=== PATIENT | female | born 1970 | race Caucasian/White ===

== ENCOUNTER 2020-02-24 17:57 | Emergency (ER) | payer BC, SELFPAY ==
--- NOTE | ~2020-02-24 | CT_ITS ---
EXAMINATION: CT abdomen pelvis w con DATE: 02/24/2020 19:19 INDICATION: Diverticulitis. Abdominal pain. TECHNIQUE: Computed tomography (CT) of the abdomen and pelvis was performed without intravenous contr ast. Automated exposure control and iterative reconstruction technique were employed. The dose-length product was 1331.61 mGy-cm. COMPARISON: 04/10/2019 FINDINGS: Lung bases are clear. Heart size is normal. No pericardial or pleural effusion. Focal hepatic steatos is at the ligamentum teres. Tiny density likely representing a gallstone within the decompressed gall bladder. Spleen, pancreas, bilateral adrenal glands and kidneys are normal. Bladder and bilateral adn exa are normal. There is enlargement of the uterine fundus with anterior bowing of the endometrial co mplex suggesting an approximately 5.6 x 4.4 cm uterine fibroid. Multiple sigmoid diverticula with inf lammatory stranding centered at a diverticulum at the mid sigmoid colon consistent with diverticular colitis. No abscess or free intraperitoneal gas or fluid. Small bowel and appendix are normal. No pat hologically enlarged abdominal or pelvic lymphadenopathy. Mild scattered degenerative skeletal change s. 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 A few scattered bone regla nds. IMPRESSION: 1. Radiographically an comminuted sigmoid diverticulitis. 2. Cholelithiasis. 3. Likely fibroid uterus. Consider follow-up pelvic ultrasound for further evaluation. Reviewed, dictated and finalized at location [facility] IMPRESSION: 1. Radiographically an comminuted sigmoid diverticulitis. 2. Cholelithiasis. 3. Likely fibroid uterus. Consider follow-up pelvic ultrasound for further eval uation.
[2020-02-24 17:59] VITALS: BP 144/110; PULSE 99; RESP 18; TEMP 37.2; O2SAT 100
--- NOTE | 2020-02-24 18:21 | ED.ABDPAIN ---
HPI - Abdominal Pain General Chief Complaint: Abdominal Pain Stated Complaint: abd pain/hx diverticulitis Time Seen by Provider: 02/24/20 18:16 Source: patient Mode of arrival: ambulatory Limitations: no limitations History of Present Illness HPI narrative: Patient is a 49-year-old female complaining of left lower quadrant pain, 7 out of 10, sharp, nonradiating started 2 days ago. Patient denies any nausea vomiting diarrhea. Patient denies any fever or chills. Patient denies any urinary symptoms. Related Data Allergies Allergy/AdvReac Type Severity Reaction Status Date / Time sulfamethoxazole Allergy Unknown Unknown Verified 02/24/20 18:29 trimethoprim Allergy Unknown Unknown Verified 02/24/20 18:29 Review of Systems Review of Systems: All systems reviewed & are unremarkable except as noted in HPI and below Constitutional: Constitutional: Denies body ache(s), Denies chills, Denies excessive sweating, Denies fatigue, Denies fever(s), Denies headache(s), Denies lethargy, Denies malaise, Denies weakness and Denies weight loss Eyes: Eyes: Denies blurry vision, Denies change in vision and Denies loss of vision ENT: Denies dizziness, Denies ear discharge, Denies headache(s), Denies lip swelling, Denies epistaxis, Denies nasal congestion, Denies neck pain, Denies throat swelling and Denies tongue swelling Cardiovascular: Cardiovascular: Denies chest pain, Denies chest pain at rest, Denies chest pain with activity, Denies diaphoresis, Denies rapid heart rate, Denies edema, Denies irregular heart rhythm, Denies lightheadedness, Denies palpitations, Denies dyspnea and Denies dyspnea on exertion Respiratory: Respiratory: Denies chest congestion, Denies cough, Denies hemoptysis, Denies dyspnea and Denies dyspnea on exertion Gastrointestinal: Gastrointestinal: Denies melena, Denies hematochezia, Denies diarrhea, Denies nausea, Denies vomiting and Denies hematemesis Musculoskeletal: Musculoskeletal: Denies abnormal gait, Denies deformity, Denies joint swelling, Denies limited range of motion, Denies neck pain and Denies numbness Neurologic: Denies Abnormal speech present, Denies abnormal gait, Denies confusion, Denies dizziness, Denies headache(s), Denies focal weakness, Denies loss of vision, Denies numbness, Denies Other visual disturbances, Denies Sensory deficit (Neuro) and Denies weakness Psychiatric: Psychiatric: Denies confusion, Denies depression, Denies auditory hallucinations, Denies homicidal ideation and Denies suicidal ideation Endocrine: Endocrine: Denies cold intolerance, Denies excessive sweating, Denies fatigue, Denies heat intolerance and Denies palpitations Hematologic/Lymphatic: Hematologic/Lymphatic: Denies easy bleeding and Denies easy bruising Allergic/Immunologic: Allergic/Immunologic: Denies lip swelling, Denies throat swelling and Denies tongue swelling PMFSH Past Medical History Medical History (Updated 02/24/20 @ 21:07 by Yariel Callahan MD) Back pain Bulging disc Diverticulitis Kidney stone Migraines Surgical History Surgical History H/O section Social History Social History (Updated 04/10/19 @ 18:28 by Ivette Tobias) Smoking status: Unknown if ever smoked Gender identity (if verbalized by the patient): Female Exam Const: General: cooperative, healthy appearing, comfortable, no acute distress, well developed, alert and awake; No confusion Orientation/consciousness: oriented to person, oriented to place, oriented to time, patient oriented x3 and No confusion Limitations: no limitations HENMT: Head: normal to inspection, normocephalic and atraumatic Ears: hearing grossly normal bilaterally, TM normal on the right and TM normal on the left General nose exam: Normal external nose present, Normal nares present and No nasal discharge present Face and sinus: normal facial exam Mouth: Yes Normal oral and palatal mucosa present, Yes l
[2020-02-24 18:34] LABS: Basophils Percent Auto 0.3 % (0.2-1.2); Eosinophils Absolute Auto 0.2 K/mm3 (0-0.3); Eosinophils Percent Auto 1.6 % (0-4.4); Hematocrit 40.3 % (37.0-47.0); Immature Granulocyte Absolute 0.04 K/mm3 (0.00-0.031); Immature Granulocyte Percent A 0.3 % (0-0.5); Lymphocytes Absolute Auto 3.16 K/mm3 (0.9-3.2); Lymphocytes Percent Auto 26.1 % (18.3-44.2); Mean Corpuscular HGB Conc 32.3 g/dl (32-36); Mean Corpuscular Hemoglobin 27.5 pg (26-34); Mean Corpuscular Volume 85.2 fl (80-100); Mean Platelet Volume 9.9 fl (7.4-10.4); Monocytes Absolute Auto 0.7 K/mm3 (0.1-0.6); Monocytes Percent Auto 5.7 % (2.6-8.5); Platelet Count Result 370 k/mm3 (150-375); Red Blood Count 4.73 M/mm3 (4.2-5.4); Red Cell Distribution Width 14.2 % (11.5-14.5); White Blood Count 12.1 K/mm3 (4.5-10.0)
[2020-02-24 18:39] LABS: Add Urine Microscopic? YES; Appearance Urine Clear (Clear); Bacteria Urine Trace /hpf; Bilirubin Urine Negative (Negative); Blood Urine 1+ (Negative); Color Urine Straw (Yellow); Glucose Urine UA Negative (Negative); Ketones Urine Negative (Negative); Leukocyte Esterase Ur Negative LEU/UL (Negative); Mucus Urine Rare /lpf; Nitrate Urine Negative (Negative); Protein Urine Negative (Negative); RBC Urine 0-2 /hpf (0-2); Specific Grav Ur 1.012 (1.001-1.035); Squamous Epithelial Cell Urine Occasional /hpf (Few); Urobilinogen Urine Negative mg/dL (<2.0); WBC Urine 0-3 /hpf
[2020-02-24 18:47] LABS: Alanine Aminotransferase 19 U/L (4-35); Albumin Level 4.2 g/dL (3.5-5.1); Alkaline Phosphatase 87 U/L (38-126); Anion Gap 7 mmol/L (8-16); Aspartate Amino Transferase 22 U/L (14-36); Bilirubin,Total 0.3 mg/dL (0.2-1.3); Blood Urea Nitrogen 12 mg/dL (7-17); Calcium 9.2 mg/dL (8.4-10.2); Carbon Dioxide 27 mmol/L (22-30); Chloride 104 mmol/L (98-107); Estimated CRCL calculation 87 ml/min; Estimated Glomerular Filt Rate > 60; Glucose 105 mg/dL (65-105); Lipase 60 U/L (23-300); Potassium 3.8 mmol/L (3.4-5.0); Sodium 138 mmol/L (137-145)
[2020-02-24 18:49] LABS: Lactic Acid Reflex 0.9 mmol/L (0.7-2.1)
[2020-02-24] MEDS: SODIUM CHLORIDE 0.9% IV 1,000 ML 999 ML IV CONT (18:50)
[2020-02-24 20:54] VITALS: BP 120/90; PULSE 91; RESP 18; TEMP 36.9; O2SAT 100
[2020-02-24] MEDS: KETOROLAC 30 MG/ML VIAL (*BKC) IV PUSH (21:17)
[2020-02-24] MEDS: HYDROcodone/acetaminophen (*CRX) 5-325 MG TABLET 1 TAB PO (21:17)
[2020-02-24] MEDS: metroNIDAZOLE 500 MG/ISO 100ML 500 MG/100 ML BAG 100 MG IVPB (21:50)
[2020-02-24 22:56] VITALS: BP 105/69; PULSE 84; RESP 16; O2SAT 97
== END 2020-02-24 23:00 | disposition home or self-care (01) ==
PROVIDERS: Emergency Provider Emergency Medicine; PCP Internal Medicine
DX: K57.32 Diverticulitis of large intestine without perforation or abscess without bleeding (principal); K80.20 Calculus of gallbladder without cholecystitis without obstruction; Z87.442 Personal history of urinary calculi; R93.89 Abnormal findings on diagnostic imaging of other specified body structures
CPT/HCPCS: 36415; 74177; 80053; 81001; 81025; 83605; 83690; 85025; 96365; 96367; 96375; 99284; A9270; J0696; J1885; J7030; Q9967

== ENCOUNTER → 2020-05-05 00:35 | Outpatient (CLI) | payer BC, SELFPAY ==
[2020-05-05 19:49] LABS: SARS-CoV-2 RNA PCR Negative
== END ==
PROVIDERS: PCP Internal Medicine; Visit Provider Internal Medicine Gastroenterology
DX: Z01.812 Encounter for preprocedural laboratory examination (principal); Z20.822 Contact with and (suspected) exposure to COVID-19
CPT/HCPCS: C9803; U0003; U0005

== ENCOUNTER 2020-05-08 01:20 | Day surgery (SDC) | payer BC, SELFPAY ==
[2020-04-25 13:31] VITALS: BMI 31.9
[2020-05-08 10:13] VITALS: BP 115/65; PULSE 65; RESP 16; TEMP 37.4; O2SAT 98; BMI 32.5
[2020-05-08] MEDS: LACTATED RINGERS 1,000 ML 150 ML IV CONT (10:19)
--- NOTE | 2020-05-08 10:19 | WPDANESEPPF ---
Anes - Initial Pre Proc Eval Procedure: Operation Date: 05/08/20 11:15 Proposed Procedures p Colonoscopy, Possible Esophagogastroduodenoscopy - Thaddeus Dias MD Date/Time: 05/08/20 10:19 Surgeon: Thaddeus Dias MD Pre Op Diagnosis: Neoplasm Screening, Heartburn Patient Data Age: 49 Gender: F Height: 5 ft 9 in Weight: 100.2 kg Last Vital Signs Temp 37.4 C 05/08/20 10:13 Pulse 65 05/08/20 10:13 Resp 16 05/08/20 10:13 BP 115/65 05/08/20 10:13 Pulse Ox 98 05/08/20 10:13 Allergies Allergy/AdvReac Type Severity Reaction Status Date / Time sulfamethoxazole AdvReac Intermediate Nausea and Verified 05/08/20 10:08 Vomiting trimethoprim AdvReac Intermediate Nausea and Verified 05/08/20 10:08 Vomiting Home Medications Medication Instructions Recorded Confirmed Type oxybutynin chloride 10 mg 10 mg PO DAILY 04/05/20 04/25/20 History tablet,extended release 24 hr sertraline 50 mg tablet 50 mg PO DAILY 04/05/20 04/25/20 History sodium,potassium,mag sulfates See Rx Instructions .ROUTE 04/23/20 Rx [Suprep Bowel Prep Kit] .COMPLEX #1 ml albuterol sulfate 1 - 2 puff INHALATION Q4H PRN 05/08/20 History fluticasone propionate [Flonase] 1 spray INTRANASAL BID 05/08/20 05/08/20 History Patient hx anesthesia problems: none Family hx anesthesia problems: none PMFSH Past Medical History Medical History Abdominal pain Anxiety Back pain Bulging disc Cough Diverticulitis Dysmenorrhea Kidney stone Low back pain Migraines Neck pain Rhinitis Surgical History Surgical History H/O section History of bladder surgery History of cryosurgery History of cystoscopy Family History Family History Mother Colon polyp Alcohol abuse Lung disease Father Malignant tumor of urinary bladder Depressive disorder Unknown Breast cancer Social History Social History Smoking status: Never smoker Alcohol intake: current Substance use: never Living arrangements: with family Gender identity (if verbalized by the patient): Female Spiritual care concerns: No Anes - Eval Final PreProcedure Day of Procedure 05/08/20 10:19 Patient weight: obese Heart: regular rate and rhythm Lungs: clear to auscultation Airway: Mallampati scale class 1 Neurological: alert and oriented Last oral intake: >/= 8 hours ASA classification: II Emergent: no Anesthetic plan: proceed Anesthesia type and monitoring: general GIVS and standard monitoring Informed Consent: The patient's anesthetic plan and its attendant risks and benefits were discussed with the patient/family/POA. Questions were solicited and answers provided to the satisfaction of the patient/family/POA.
--- NOTE | 2020-05-08 11:02 | WPDHPUPDATE1 ---
History and Physical Update Update Date/Time: 05/08/20 11:02 History and Physical has been reviewed, including an updated exam of the patient. There are NO changes in the patient's condition. Risks, benefits, and alternatives have been discussed and questions answered. Patient agrees to proceed with procedure.
[2020-05-08] MEDS: BENZOCAINE (*SP) 60 ML SPRAY CAN (HURRICAINE) 1 SPRAY MUCOUS MEM (11:05)
[2020-05-08 11:32] VITALS: BP 94/56; PULSE 63; RESP 16; O2SAT 100
[2020-05-08 11:42] VITALS: BP 104/59; PULSE 52; RESP 16; O2SAT 99
[2020-05-08 11:52] VITALS: BP 114/72; PULSE 65; RESP 16; O2SAT 100
== END 2020-05-08 12:02 | disposition home or self-care (01) ==
PROVIDERS: PCP Internal Medicine; Visit Provider Internal Medicine Gastroenterology
PROC: 0DJ08ZZ Inspection of Upper Intestinal Tract, Via Natural or Artificial Opening Endoscopic (ICD-10-PCS; CPT 43235; principal; 2020-05-08 11:15)
DX: K57.32 Diverticulitis of large intestine without perforation or abscess without bleeding (principal); K29.50 Unspecified chronic gastritis without bleeding; R14.2 Eructation; R12 Heartburn; F41.9 Anxiety disorder, unspecified; M54.5 Low back pain; M54.2 Cervicalgia; Z80.0 Family history of malignant neoplasm of digestive organs; Z83.71 Family history of colonic polyps; Z80.52 Family history of malignant neoplasm of bladder; Z87.442 Personal history of urinary calculi
CPT/HCPCS: 45378; 43239; 88305; J2704; J7120

== ENCOUNTER 2021-07-24 21:34 | Emergency (ER) | payer BC, SELFPAY ==
[2021-07-24 22:02] VITALS: BP 149/87; PULSE 111; RESP 16; TEMP 36.2; O2SAT 97
--- NOTE | 2021-07-24 23:12 | ED.GENADULT ---
HPI - General Adult General Chief complaint: Vaginal Bleeding Stated complaint: Heavy menstrual bleeding Time Seen by Provider: 07/24/21 22:53 History of Present Illness HPI narrative: Patient is a 50-year-old female with a history of uterine fibroid here for evaluation of heavy vaginal bleeding today. Patient states she has been bleeding for the past 8 weeks nearly constantly, she states her bleeding increased acutely today, to the point where she was passing apple sized clots. Patient saturated five maxipads in the past 4 hours, and notes large amounts of blood passing when she stands up. Patient has been seen by Dr. Shelby, who is planning for hysteroscopy D&C endometrial ablation in August, but office recommended ED visit today due to severity of clotting. Additionally reporting some lower abdominal cramping, intermittent for the past 2 days. Patient denies lightheadedness, dizziness, fevers, chills, nausea, vomiting. Related Data Home Medications Medication Instructions Recorded Confirmed oxybutynin chloride 10 mg 10 mg PO DAILY 04/05/20 07/02/20 tablet,extended release 24 hr sertraline 50 mg tablet 50 mg PO DAILY 04/05/20 07/02/20 albuterol sulfate 1 - 2 puff INHALATION Q4H PRN 05/08/20 07/02/20 fluticasone propionate [Flonase] 1 spray INTRANASAL BID 05/08/20 07/02/20 Allergies Allergy/AdvReac Type Severity Reaction Status Date / Time oseltamivir [From Tamiflu] Allergy Severe Itching Verified 07/24/21 22:08 sulfamethoxazole AdvReac Intermediate Nausea and Verified 07/24/21 22:08 Vomiting trimethoprim AdvReac Intermediate Nausea and Verified 07/24/21 22:08 Vomiting Review of Systems Review of Systems: Gen: Denies fevers or chills Eyes: Denies eye pain or visual change ENT: Denies congestion Respiratory: Denies shortness of breath or cough CV: Denies chest pain or palpitations GI: Reports abdominal cramping. Denies nausea, emesis or diarrhea : Reports vaginal bleeding. Musculoskeletal: Denies back pain or muscle pain Neuro: Denies numbness, tingling, weakness or focal weakness Skin: Denies rash Except as documented, all other systems reviewed and negative PMFSH Past Medical History Medical History Abdominal pain Anxiety Back pain Bulging disc Cough Depression Diverticulitis Dysmenorrhea Dyspepsia Gastritis determined by endoscopy Kidney stone Low back pain Migraines Neck pain Rhinitis Surgical History Surgical History H/O section History of bladder surgery History of cryosurgery History of cystoscopy Family History Family History (Updated 07/10/21 @ 11:03 by Ivette White Paulo) Mother Colon polyp Alcohol abuse Lung disease Dementia Father Malignant tumor of urinary bladder Depressive disorder Unknown Breast cancer Social History Social History (Updated 07/10/21 @ 11:04 by ANAND Brooke) Smoking status: Never smoker Alcohol intake: current Alcohol use details: occasional Substance use: never Substance use type: does not use Additional living arrangements comments: 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 Head normocephalic and atraumatic. EYES: PERRLA/EOMI, conjunctivae clear NOSE: No nasal drainage EARS: External ear normal in appearance THROAT: Oropharynx is clear. Mucous membranes are moist. NECK: Supple. No adenopathy, no masses. RESPIRATORY: Airway patent, respirations nonlabored. Clear to auscultation bilaterally, no rales, rhonchi, wheezing. CARDIOVASCULAR: Regular rate and rhythm without murmurs, rubs, or gallops.
[2021-07-24 23:31] VITALS: BP 120/69; PULSE 94; RESP 20; O2SAT 95
[2021-07-24 23:47] LABS: Alanine Aminotransferase 14 U/L (4-35); Albumin Level 3.8 g/dL (3.5-5.1); Alkaline Phosphatase 88 U/L (38-126); Anion Gap 8 mmol/L (8-16); Aspartate Amino Transferase 24 U/L (14-36); Bilirubin,Total 0.3 mg/dL (0.2-1.3); Blood Urea Nitrogen 17 mg/dL (7-17); Calcium 8.8 mg/dL (8.4-10.2); Carbon Dioxide 25 mmol/L (22-30); Chloride 104 mmol/L (98-107); Estimated CRCL calculation 85 ml/min; Estimated Glomerular Filt Rate > 60; Glucose 108 mg/dL (65-110); Potassium 3.9 mmol/L (3.4-5.0); Sodium 137 mmol/L (137-145)
[2021-07-24 23:47] LABS: Basophils Absolute Auto 0.1 K/mm3 (0.0-0.1); Basophils Percent Auto 0.4 % (0.2-1.2); Eosinophils Absolute Auto 0.2 K/mm3 (0-0.3); Eosinophils Percent Auto 1.2 % (0-4.4); Hemoglobin 12.3 g/dL (12.0-15.0); Immature Granulocyte Absolute 0.06 K/mm3 (0.00-0.031); Immature Granulocyte Percent A 0.5 % (0-0.5); Lymphocytes Absolute Auto 3.08 K/mm3 (0.9-3.2); Lymphocytes Percent Auto 23.4 % (18.3-44.2); Mean Corpuscular HGB Conc 31.5 g/dl (32-36); Mean Corpuscular Volume 88.8 fl (80-100); Mean Platelet Volume 9.9 fl (7.4-10.4); Monocytes Absolute Auto 0.8 K/mm3 (0.1-0.6); Monocytes Percent Auto 5.9 % (2.6-8.5); Neutrophils Absolute Auto 9.1 K/mm3 (1.3-6.7); Neutrophils Percent Auto 68.6 % (45.5-73.1); Platelet Count Result 362 k/mm3 (150-375); Red Blood Count 4.39 M/mm3 (4.2-5.4); Red Cell Distribution Width 13.3 % (11.5-14.5); White Blood Count 13.2 K/mm3 (4.5-10.0)
[2021-07-25] MEDS: KETOROLAC 15 MG/ML VIAL (*BKC) IV PUSH (01:25)
[2021-07-25 01:35] VITALS: BP 124/66; PULSE 73; RESP 18; O2SAT 99
== END 2021-07-25 01:40 | disposition home or self-care (01) ==
PROVIDERS: Emergency Provider Emergency Medicine; PCP Internal Medicine
DX: N93.9 Abnormal uterine and vaginal bleeding, unspecified (principal); F41.9 Anxiety disorder, unspecified; F32.A Depression, unspecified; Z87.442 Personal history of urinary calculi
CPT/HCPCS: 36415; 80053; 81025; 85025; 86850; 86900; 86901; 96374; 99284; A9270; J1885

== ENCOUNTER 2021-08-14 01:00 | Day surgery (SDC) | payer BC, SELFPAY ==
[2021-08-09 13:31] VITALS: BMI 33.3
--- NOTE | 2021-08-09 13:38 | PC.NURSE ---
Report to the Outpatient Waiting Room, entrance under the green pavilion located off [facility], at time _0830__ on date _08-14-21. OR Time: __1030_. - You and your visitor will be asked a series of questions to screen for COVID 19 for your protection. - Only one visitor is allowed at this time. - The patient visitor is requested to leave or wait in car when not with patient. - A mask is required within the hospital. Patients may have clear liquids (water, carbonated beverages, clear teas, apple juice) until 3 hours prior to surgery with a maximum of 20 ounces. - No food from midnight until time of surgery Take the following medications with a SIP of water the morning of surgery: __Sertraline Medications to discontinue per physician None Date to take last dose Please no make-up, nail new zealander, hairspray, perfume, deodorant, or body powder the day of surgery. No jewelry (including any body piercings) or valuables the day of surgery, leave them at home. Please take a shower or bath the night before, or the morning of, surgery with an antibacterial soap. Wear comfortable, loose fitting clothing. Children are encouraged to wear pajamas. - Jewelry must be removed prior to entering the operating room. Rings and piercings that are not removed may be cut off. - The hospital will not accept responsibility for valuables. - Please leave all valuables, including medications, at home the day of surgery. If you are going home after surgery, a licensed driver merchandiser must drive you home. - NO public transportation without another adult. - We recommend that an adult stay with you for 24 hours following discharge. - We also recommend that you do not drive, make important decision, drink alcoholic beverages, or take any drugs that were not prescribed by your health care provider for at least 24 hours after your discharge time. Follow any additional instructions given to you from your surgeon. If you or anyone in your household have experienced Covid symptoms in the past week, please notify your surgeon or the nurse liaison at the phone number below for possible testing. Telephone instructions given to Patient and asked if any additional questions and then verbalized understanding. Patient advised to call surgeon office or pre surgery nurse liaison [phone] if any additional questions.
--- NOTE | 2021-08-13 18:24 | PM.IMHP ---
H&P: HPI History of Present Illness Date/Time: 08/13/21 18:24 50-year-old female presents for surgical management heavy vaginal bleeding. This has been off going longstanding problem for her that has worsened over the past for 6 months. Now consists of 7-10 days with 4-5 days very heavy clotting cramping and passing of significant amount of blood and uterine products. Ultrasounds been performed which reveals enlarged uterus with 5cm fibroid and no other specific abnormalities noted. Chief Complaint: menometrorrhagia Review of Systems Review of Systems: All systems reviewed & are unremarkable except as noted in HPI and below PMFSH Past Medical History Medical History Abdominal pain Anxiety Back pain Bulging disc Cough Depression Diverticulitis Dysmenorrhea Dyspepsia Gastritis determined by endoscopy Kidney stone Low back pain Migraines Neck pain Rhinitis Surgical History Surgical History H/O section History of bladder surgery History of cryosurgery History of cystoscopy Family History Family History Mother Colon polyp Alcohol abuse Lung disease Dementia Father Malignant tumor of urinary bladder Depressive disorder Unknown Breast cancer Social History Social History Smoking status: Never smoker Alcohol intake: current Drinks per week: 1 Alcohol use details: occasional Substance use: never Substance use type: does not use Additional living arrangements comments: 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 Gender identity (if verbalized by the patient): Female Sexual Orientation (if Verbalized by the Patient): Straight or Heterosexual Spiritual care concerns: No Meds Home Medications and Allergies Home Medications Medication Instructions Recorded Confirmed Type albuterol sulfate 90 mcg/actuation 1 - 2 puff inhalation Q4H PRN 05/08/20 08/09/21 History aerosol inhaler Allergy Symptoms omeprazole 40 mg capsule,delayed 40 mg PO DAILY #30 caps 07/02/20 08/09/21 Rx release sertraline 50 mg tablet 50 mg PO DAILY #90 tabs 07/10/21 08/09/21 Rx medroxyprogesterone 10 mg tablet 10 mg PO DAILY #7 tabs 07/25/21 08/09/21 Rx (Provera) Allergies Allergy/AdvReac Type Severity Reaction Status Date / Time oseltamivir [From Tamiflu] Allergy Severe Itching Verified 08/09/21 13:28 sulfamethoxazole AdvReac Intermediate Nausea and Verified 08/09/21 13:28 Vomiting trimethoprim AdvReac Intermediate Nausea and Verified 08/09/21 13:28 Vomiting Exam Const: General: cooperative, healthy appearing and comfortable Resp: Effort & Inspection: normal respiratory effort Auscultation: clear to auscultation bilaterally Cardio: Rate: regular rate Rhythm: regular rhythm GI: Inspection: normal to inspection Auscultation: normal bowel sounds : External Female Exam: normal external appearance Speculum Exam - Vagina: normal appearance of the vagina Speculum Exam - Cervix: normal appearance of the cervix Bimanual exam- vagina & uterus: enlarged ( A 10 12 week size) Bimanual Exam- Adnexa, other: normal adnexae Assessment and Plan Assessment and plan (1) Menometrorrhagia: Code(s): N92.1 - Excessive and frequent menstruation with irregular cycle Status: Acute Assessment and Plan: will proceed with hysteroscopy D&C and endometrial ablation. Have discussed with problem 2. (fibroid) that the endometrial ablation may not give the same results it would without the fibroid but she strongly desires to proceed with minimal intervention if possible which would consist of the ablation. has had a vasectomy therefore tubal ligation is not warranted in this case. (2) Uterine fibroid: Code(s)
[2021-08-14] VITALS (8 sets, daily range): BP systolic 110–138; BP diastolic 56–82; PULSE 79–99; RESP 16–20; TEMP 35.9–36.5; O2SAT 99–100
--- NOTE | 2021-08-14 08:17 | WPDHPUPDATE1 ---
History and Physical Update Update Date/Time: 08/14/21 08:17 Patient will be having bilateral salpingectomy/has been added to consent as well. History and Physical has been reviewed, including an updated exam of the patient. There are NO changes in the patient's condition. Risks, benefits, and alternatives have been discussed and questions answered. Patient agrees to proceed with procedure.
[2021-08-14] MEDS: ACETAMINOPHEN 500 MG TABLET 1000 MG PO (09:36)
[2021-08-14] MEDS: LACTATED RINGERS 1,000 ML 30 ML IV CONT ×2 (09:40→11:35)
[2021-08-14] MEDS: KETOROLAC 15 MG/ML VIAL (*BKC) IV PUSH (09:42)
--- NOTE | 2021-08-14 09:49 | WPDANESEPPF ---
Anes - Initial Pre Proc Eval Procedure: Operation Date: 08/14/21 10:30 Proposed Procedures p Hysteroscopy with Dilation and Curettage, Kimberly Endometrial Ablation, Bilateral Laparoscopic Salpingectomy - Andry Shelby MD Date/Time: 08/14/21 09:49 Surgeon: Andry Shelby MD Pre Op Diagnosis: Menometrorrhagia Patient Data Age: 50 Gender: F Height: 1.75 m Weight: 102.3 kg Allergies Allergy/AdvReac Type Severity Reaction Status Date / Time oseltamivir [From Tamiflu] AdvReac Severe Itching Verified 08/14/21 09:33 sulfamethoxazole AdvReac Intermediate Nausea and Verified 08/14/21 09:33 Vomiting trimethoprim AdvReac Intermediate Nausea and Verified 08/14/21 09:33 Vomiting Home Medications Medication Instructions Recorded Confirmed Type albuterol sulfate 90 mcg/actuation 1 - 2 puff inhalation Q4H PRN 05/08/20 08/09/21 History aerosol inhaler Allergy Symptoms omeprazole 40 mg capsule,delayed 40 mg PO DAILY #30 caps 07/02/20 08/09/21 Rx release sertraline 50 mg tablet 50 mg PO DAILY #90 tabs 07/10/21 08/09/21 Rx medroxyprogesterone 10 mg tablet 10 mg PO DAILY #7 tabs 07/25/21 08/09/21 Rx (Provera) Patient hx anesthesia problems: none Family hx anesthesia problems: none Results Review: All pre-operative results and documents have been reviewed as part of the pre-operative evaluation. [facility] Past Medical History Medical History Abdominal pain Anxiety Back pain Bulging disc Cough Depression Diverticulitis Dysmenorrhea Dyspepsia Gastritis determined by endoscopy Kidney stone Low back pain Migraines Neck pain Rhinitis Surgical History Surgical History H/O section History of bladder surgery History of cryosurgery History of cystoscopy Family History Family History Mother Colon polyp Alcohol abuse Lung disease Dementia Father Malignant tumor of urinary bladder Depressive disorder Unknown Breast cancer Social History Social History Smoking status: Never smoker Alcohol intake: current Drinks per week: 1 Alcohol use details: occasional Substance use: never Substance use type: does not use Living arrangements: with family Additional living arrangements comments: 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 Gender identity (if verbalized by the patient): Female Sexual Orientation (if Verbalized by the Patient): Straight or Heterosexual Spiritual care concerns: No Anes - Eval Final PreProcedure Day of Procedure 08/14/21 09:49 Patient weight: obese Heart: regular rate and rhythm Lungs: clear to auscultation Airway: Mallampati scale class II Last oral intake: >/= 8 hours ASA classification: II Emergent: no Anesthetic plan: proceed Anesthesia type and monitoring: general ETT and standard monitoring Results Review: All pre-operative results and documents have been reviewed as part of the pre-operative evaluation. Informed Consent: The patient's anesthetic plan and its attendant risks and benefits were discussed with the patient/family/POA. Questions were solicited and answers provided to the satisfaction of the patient/family/POA.
[2021-08-14] MEDS: ceFAZolin 2 GM/D5W 50 ML 2 GM/50 ML BAG IVPB (09:55)
--- NOTE | 2021-08-14 09:56 | SUR.PREOP ---
0830-PT AWARE INSURANCE APPROVAL PENDING AND UNABLE TO PROCEED WITH PREPARATION UNTIL APPROVED. 0930-APPROVAL RECEIVED AND WILL PROCEED WITH PREPARATION.
--- NOTE | 2021-08-14 11:03 | W.PM.PROC2 ---
Procedure Note - Detailed Date of Procedure 08/14/21 Pre-op Diagnosis Menometrorrhagia/undesired fertility Post-op Diagnosis Same Procedure Performed 1. Hysteroscopy with uterine curettings 2. Endometrial ablation 3. laparoscopic bilateral salpingectomy Surgeon Andry Shelby MD Anesthesia General Indications Menometrorrhagia Findings 1. Enlarged uterus 2. Tubes and ovaries without abnormality 3. Fibroid impinging on endometrial cavity Description of Procedure Patient prepped and draped in usual manner for this procedure. Periumbilical and lower abdominal trocar sites were placed under direct visualization. Using the Harmonic scalpel the mesial salpinx was cauterized and cut and the to fallopian tubes were removed without difficulty. Gas was let escape incisions approximate Monocryl. Cervix dilated to allow the hysteroscope to be placed which did reveals fibroid impinging on the endometrial cavity. Curettings were obtained and the Kimberly instrument was placed insert was activated after cavity assessment was performed and destruction was noted throughout. At this point seizure was considered terminated was resent recovery room stable condition. Estimated Blood Loss 10 Pathology Yes Complications No immediate complications Condition Stable [facility] Billing Surgery - Charge Forward: Surgery Billing
[2021-08-14] MEDS: fentaNYL CITRATE INJ (*CRX) 100 MCG/2 ML VIAL 25 MCG IV PUSH ×4 (11:27→11:36)
[2021-08-14] MEDS: oxyCODONE HCL (*CRX) 5 MG TAB IR PO (12:12)
== END 2021-08-14 12:50 | disposition home or self-care (01) ==
PROVIDERS: PCP Internal Medicine; Visit Provider Obstetrics & Gynecology
PROC: 0UDB8ZZ Extraction of Endometrium, Via Natural or Artificial Opening Endoscopic (ICD-10-PCS; CPT 58558; principal; 2021-08-14 10:30)
DX: N92.1 Excessive and frequent menstruation with irregular cycle (principal); Z30.2 Encounter for sterilization; D25.9 Leiomyoma of uterus, unspecified; N73.6 Female pelvic peritoneal adhesions (postinfective); F41.8 Other specified anxiety disorders; E66.9 Obesity, unspecified; Z68.34 Body mass index [BMI] 34.0-34.9, adult
CPT/HCPCS: 58563; 58661; 88302; 88305; A9270; J0330; J0690; J1100; J1885; J2250; J2405; J2704; J3010; J7030; J7120